=== PATIENT | male | born 1960 | race Caucasian/White ===

== ENCOUNTER 2018-08-11 14:52 | Emergency (ER) | payer BC ==
[~2018-08-11] VITALS: Ht 182.9 cm; Wt 81.2 kg
--- NOTE | 2018-08-11 15:05 | NUR ---
PT BIB SELF C/O GLF, +KO,+DIZZY,HEMATOMA ON THE R EYE, LAC R EYE, R CHIN, PT IS AAOX4, NOT IN RESPIRATORY DISTRESS, KEPT RESTED AND COMFORTABLE.
--- NOTE | 2018-08-11 15:10 | NUR ---
SEEN AND EXAMINED BY DR. SERVIN.
[2018-08-11] MEDS ORDERED: TDAP [DIPH/PERTUSSIS/TET] 0.5 ML VIAL IM ONE ×2 (15:24→15:30)
[2018-08-11] MEDS ORDERED: CEPHALEXIN MONOHYDRATE 500 MG CAPSULE PO ONE ×2 (15:24→15:30)
--- NOTE | 2018-08-11 15:30 | NUR ---
PT IS WHEELD TO CT SCAN VIA [facility].
--- NOTE | 2018-08-11 16:01 | NUR ---
CALLED DR ANNE, LEFT A VOICEMAIL.
[2018-08-11 16:04] LABS: BASOPHILS # (AUTO) 0.1 /CMM (0.0-0.2); BASOPHILS % (AUTO) 0.7 % (0.0-2.0); EOSINOPHILS % (AUTO) 0.5 % (0.0-6.0); HEMATOCRIT 40 % (39-51); HEMOGLOBIN 13.9 g/dL (13.5-17.5); LYMPHOCYTES # (AUTO) 1.1 /CMM (0.8-4.8); LYMPHOCYTES % (AUTO) 16.1 % (20.0-44.0); MEAN CORPUSCULAR HGB CONC 35 g/dl (31.0-36.0); MEAN CORPUSCULAR VOLUME 104 fL (80-96); MONOCYTES # (AUTO) 0.5 /CMM (0.1-1.30); MONOCYTES % (AUTO) 7.5 % (2.0-12.0); NEUTROPHILS % (AUTO) 75.2 % (43.0-81.0); PLATELET COUNT (AUTO) 167 /CMM (150-450); RED BLOOD CELL COUNT(AUTO) 3.84 MIL/uL (4.5-6.0); WHITE BLOOD COUNT (AUTO) 6.7 K/uL (4.3-11.0)
[2018-08-11 16:10] LABS: CALCIUM, SERUM 9.2 mg/dL (8.5-10.1); CREATININE 1.2 mg/dL (0.6-1.3); POTASSIUM 4.2 mmol/L (3.5-5.1)
--- NOTE | 2018-08-11 17:32 | NUR ---
IV removed. Catheter intact and site benign. Pressure and 4x4 applied to site. No bleeding noted. Patient discharged to home in stable condition. Written and verbal after care instructions given. Patient verbalizes understanding of instruction.
[2018-08-11 17:33] VITALS: BP 128/71
[2018-09-22] MEDS ORDERED: FOLI1TAB16 PO (13:04)
[2018-09-22] MEDS ORDERED: THIA100T88 PO (13:04)
== END 2018-08-11 17:35 | disposition home or self-care (01) ==
LOC: ER 14:55
DX: S06.6X0A Traumatic subarachnoid hemorrhage without loss of consciousness, initial encounter (principal); S01.111A Laceration without foreign body of right eyelid and periocular area, initial encounter; S01.411A Laceration without foreign body of right cheek and temporomandibular area, initial encounter; H11.31 Conjunctival hemorrhage, right eye; F17.200 Nicotine dependence, unspecified, uncomplicated; I10 Essential (primary) hypertension; E78.5 Hyperlipidemia, unspecified; F10.10 Alcohol abuse, uncomplicated; E78.00 Pure hypercholesterolemia, unspecified; R94.31 Abnormal electrocardiogram [ECG] [EKG]; Y90.9 Presence of alcohol in blood, level not specified; W18.39XA Other fall on same level, initial encounter; Y93.89 Activity, other specified; Y92.89 Other specified places as the place of occurrence of the external cause; Y99.8 Other external cause status
CPT/HCPCS: 36415; 70450-TC; 70486-TC; 80048-TC; 85025-TC; 85730-TC; 90715; A6403

== ENCOUNTER 2018-09-20 11:52 | Inpatient (IN) | payer SELFPAY ==
[2018-09-20] VITALS (12 sets, daily range): BP systolic 135–157; BP diastolic 56–114
[~2018-09-20] VITALS: Ht 182.9 cm; Wt 79.8 kg
--- NOTE | 2018-09-20 11:52 | NUR ---
BIB FROM HOME FOR ETOH WITHDRAWAL; PT AAOX4, PT ON MONITOR, VSS, NAD NOTED, PENDING MD CULLEN
[2018-09-20] MEDS ORDERED: ONDANSETRON HCL/PF 4 MG/2 ML VIAL ONE (12:27)
[2018-09-20] MEDS ORDERED: LORAZEPAM INJ 2 MG/ML VIAL ONE ×3 (12:27→16:07)
[2018-09-20] MEDS ORDERED: LORAZEPAM INJ 2 MG/ML VIAL IVP ONE (12:30)
[2018-09-20] MEDS ORDERED: IV NS 0.9% 1,000 ML BAG IV ONE ×2 (12:30→15:30)
[2018-09-20] MEDS ORDERED: ONDANSETRON HCL/PF 4 MG/2 ML VIAL IVP ONE (12:30)
[2018-09-20 12:33] LABS: BASOPHILS % (AUTO) 0.4 % (0.0-2.0); EOSINOPHILS % (AUTO) 0.2 % (0.0-6.0); HEMATOCRIT 40 % (39-51); HEMOGLOBIN 13.8 g/dL (13.5-17.5); LYMPHOCYTES # (AUTO) 0.8 /CMM (0.8-4.8); LYMPHOCYTES % (AUTO) 9.2 % (20.0-44.0); MEAN CORPUSCULAR HGB CONC 35 g/dl (31.0-36.0); MEAN CORPUSCULAR VOLUME 104 fL (80-96); MONOCYTES # (AUTO) 0.9 /CMM (0.1-1.30); MONOCYTES % (AUTO) 10.6 % (2.0-12.0); NEUTROPHILS # (AUTO) 6.8 /CMM (1.8-8.9); NEUTROPHILS % (AUTO) 79.6 % (43.0-81.0); PLATELET COUNT (AUTO) 114 /CMM (150-450); RED BLOOD CELL COUNT(AUTO) 3.83 MIL/uL (4.5-6.0); WHITE BLOOD COUNT (AUTO) 8.6 K/uL (4.3-11.0)
[2018-09-20 12:44] LABS: LIPASE 233 U/L (73-393)
[2018-09-20 12:47] LABS: CALCIUM, SERUM 10.3 mg/dL (8.5-10.1); CARBON DIOXIDE 23 mmol/L (21-32); CHLORIDE 99 mmol/L (98-107); CREATININE 1.6 mg/dL (0.6-1.3); GLUCOSE 113 mg/dL (74-106); POTASSIUM 4.1 mmol/L (3.5-5.1); SODIUM SERUM 137 mmol/L (136-145); UREA NITROGEN, BLOOD 28 mg/dL (7-18)
[2018-09-20 12:50] LABS: ALANINE AMINOTRANSFERASE 111 U/L (12-78); ALBUMIN 4.2 g/dL (3.4-5.0); ALCOHOL, BLOOD < 3 mg/dL (0-0); ALKALINE PHOSPHATASE 110 U/L (46-116); ASPARTATE AMINOTRANSFERASE 98 U/L (15-37); BILIRUBIN,DIRECT 0.6 mg/dL (0.0-0.2); BILIRUBIN,TOTAL 2.4 mg/dL (0.2-1.0); TOTAL PROTEIN, SERUM 7.8 g/dL (6.4-8.2)
[2018-09-20] MEDS ORDERED: LORAZEPAM INJ 2 MG/ML VIAL IV ONE ×2 (13:30→15:30)
[2018-09-20] MEDS ORDERED: LORAZEPAM 1 MG TABLET ONE (13:35)
--- NOTE | 2018-09-20 13:57 | NUR ---
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
[2018-09-20] MEDS ORDERED: THIAMINE HCL 100 MG TABLET PO ONE (15:00)
--- NOTE | 2018-09-20 15:20 | NUR ---
REPORTED TO CHARLEE DROSS PULLER, PT ACTING BIZARRE. PER CHARLEE, SHE WILL CHECK PT.
[2018-09-20] MEDS ORDERED: Thiamine 500 MG in IV D5W 50 ML IV SCH (15:30)
[2018-09-20] MEDS ORDERED: Thiamine 100 MG in IV D5W 50 ML IV SCH (15:30)
[2018-09-20] MEDS ORDERED: VENL75CA62 PO (16:26)
[2018-09-20] MEDS ORDERED: LISI40TA4 PO (16:26)
[2018-09-20] MEDS ORDERED: THIA100T70 PO (16:26)
[2018-09-20] MEDS ORDERED: LORA-259 PO (16:26)
[2018-09-20] MEDS ORDERED: ATOR10TA PO (16:26)
[2018-09-20] MEDS ORDERED: MULT1CAP34 PO (16:26)
--- NOTE | 2018-09-20 16:48 | NUR ---
ICU 254.
[2018-09-20] MEDS ORDERED: Z GUARD REMEDY 2 OZ OINT TP PRN (17:00)
[2018-09-20] MEDS ORDERED: ZOLPIDEM TARTRATE 5 MG TABLET PO PRN (17:00)
[2018-09-20] MEDS ORDERED: HYDROCODONE/APAP 5/325MG 1 EACH TABLET PO PRN (17:00)
[2018-09-20] MEDS ORDERED: MAG HYDROX/AL HYDROX/SIMETH 30 ML UDC PO PRN (17:00)
[2018-09-20] MEDS ORDERED: ALBUTEROL FS 2.5 MG/3 ML VIAL.NEB NEB PRN (17:00)
[2018-09-20] MEDS ORDERED: MAGNESIUM HYDROXIDE 30 ML UDC PO PRN (17:00)
[2018-09-20] MEDS ORDERED: LORAZEPAM INJ 2 MG/ML VIAL IV PRN (17:00)
[2018-09-20] MEDS ORDERED: ACETAMINOPHEN 325 MG TABLET PO PRN (17:00)
[2018-09-20] MEDS ORDERED: ONDANSETRON HCL/PF 4 MG/2 ML VIAL IVP PRN (17:00)
--- NOTE | 2018-09-20 17:04 | NUR ---
RECEIVED REPORT FROM FORGE HELPER FOR CONTINUITY OF CARE. AWAITING PATIENT ARRIVAL.
--- NOTE | 2018-09-20 17:04 | NUR ---
REPORT GIVEN TO WILBUR BRAN FOR JOSEFINA; PT WILL BE TRANSFERRED TO ICU VIA ACLS PROTOCOL
--- NOTE | 2018-09-20 17:16 | NUR ---
RECEIVED PT IN NO ACUTE DISTRESS IN BED. PT IS A/O X 1 AND HAS SLURRED SPEECH. PT IS ON RA AND TOLERATING WELL WITH O2 SAT @ 97%. PT NOT C/O ANY SOB, DIFFICULTY BREATHING OR PAIN AT THIS TIME. PT CURRENTLY SPEAKING TO HIM SELF AND IS HAVING HALLUCINATIONS. PT PLACED ON TELE WITH ST ON THE MONITOR. PT HAS LFA 20G THAT IS CLEAN DRY INTACT AND PATENT WITH SALINE FLUSH. ALL NEEDS MET, ALL ORDERS CARRIED OUT. WILL CONTINUE TO MONITOR PT.
[2018-09-20] MEDS: LORAZEPAM INJ 2 MG/ML VIAL IV SCH ×2 (18:25→23:05)
[2018-09-20] MEDS: IV NS 0.9% 1,000 ML IV PRN (18:27)
[2018-09-20] MEDS: NICOTINE PATCH (21MG) 21 MG PATCH.TD24 TD SCH (23:07)
[2018-09-21] VITALS (21 sets, daily range): BP systolic 120–189; BP diastolic 45–120
[2018-09-21] MEDS: LORAZEPAM INJ 2 MG/ML VIAL IV SCH ×4 (04:38→22:40)
[2018-09-21] MEDS ORDERED: Thiamine 100 MG/ML VIAL ONE (05:13)
[2018-09-21 05:17] LABS: BASOPHILS % (AUTO) 0.9 % (0.0-2.0); EOSINOPHILS % (AUTO) 1.8 % (0.0-6.0); HEMATOCRIT 31 % (39-51); HEMOGLOBIN 10.8 g/dL (13.5-17.5); MEAN CORPUSCULAR HGB CONC 34 g/dl (31.0-36.0); MEAN CORPUSCULAR VOLUME 105 fL (80-96); MONOCYTES # (AUTO) 0.8 /CMM (0.1-1.30); MONOCYTES % (AUTO) 14.6 % (2.0-12.0); NEUTROPHILS # (AUTO) 3.5 /CMM (1.8-8.9); NEUTROPHILS % (AUTO) 63.7 % (43.0-81.0); PLATELET COUNT (AUTO) 84 /CMM (150-450); RED BLOOD CELL COUNT(AUTO) 2.97 MIL/uL (4.5-6.0); WHITE BLOOD COUNT (AUTO) 5.5 K/uL (4.3-11.0)
[2018-09-21 05:44] LABS: CALCIUM, SERUM 8.6 mg/dL (8.5-10.1); MAGNESIUM 1.5 mg/dL (1.8-2.4); PHOSPHORUS 3.9 mg/dL (2.5-4.9); POTASSIUM 3.6 mmol/L (3.5-5.1)
[2018-09-21 05:54] LABS: EOSINOPHILS % (MANUAL) 1 % (0-4); LYMPHOCYTES % (MANUAL) 18 % (16-48); MONOCYTES % (MANUAL) 12 % (0-11.0); NEUTROPHILS % (MANUAL) 69 (42-76)
[2018-09-21] MEDS ORDERED: Thiamine 100 MG in IV D5W 50 ML IV SCH (06:00)
[2018-09-21] MEDS: IV NS 0.9% 1,000 ML IV PRN ×2 (07:35→22:40)
[2018-09-21] MEDS: FOLIC ACID 1 MG TABLET PO SCH (08:18)
[2018-09-21] MEDS: NICOTINE PATCH (21MG) 21 MG PATCH.TD24 TD SCH (08:18)
[2018-09-21] MEDS: hydrALAZINE HCL IV 20 MG VIAL IV PRN ×2 (08:18→18:34)
--- NOTE | 2018-09-21 08:18 | NUR ---
INITIAL ASSET MANAGEMENT LEAD NOTE RCVD PT AWAKE AND ALERT TO SELF, SITUATION, ORIENTED TO PLACE, TIME, ON RA TOLERATING WELL, SR ON MONITOR. PT ABLE TO FOLLOW COMMANDS, BRUISING FOUND THROUGHOUT BODY, LEFT FA IV SITE C/D/I/PATENT, NO S/O INFILTRATION/PHLEBITIS OBSERVED IVF INFUSING ORDERED. PT TOLERATING REGULAR DIET, BUE TREMORS OBSERVED WHILE FEEDING, WEAK GAIT UPON TRANSFERRING TO CHAIR. WILL CONTINUE TO MONITOR PT FOR SAFETY AND COMFORT. CALL LIGHT WITHIN REACH.
[2018-09-21] MEDS ORDERED: LISINOPRIL (20MG) 20 MG TABLET PO SCH (11:30)
--- NOTE | 2018-09-21 12:00 | NUR ---
TD/CLINICAL APPLICATIONS MANAGER TO [facility] PT TRANSFERRED TO [facility] VIA WHEELCHAIR ACCOMPANIED BY ICU NURSE STIVEN TO ROOM 115#1, PT NOTED WITH CONFUSION BUT ALERT TO HIMSELF. PT WAS ENDORSED TO CONTINUE CARE. PT IS COMFORTABLE AT THIS TIME, SAFETY MAINTAINED AND CL WITHIN REACHED. ON GOING MONITORING.
--- NOTE | 2018-09-21 12:01 | NUR ---
TRANSFER NOTE PT TRANSFERRED TO [facility] ROM 115-1 VIA WHEELCHAIR VITAL SIGNS STABLE, SHOWING NO SIGNS OF DISTRESS OBSERVED, PT AWAKE AND ALERT TO SELF, SITUATION. DR. CORDERO IN UNIT PRIOR TRANSFER INFORMED OF PT'S ELEVATED BP, RECOMMENDED TO START HIM BACK ON LISINOPRIL, PT INFORMED AND AWARE. ALL BELONGINGS TRANSFERRED WITH PT. REPORT GIVEN TO WILBUR FANG AT BEDSIDE. PT TOLERATED TRANSFER WELL.
[2018-09-21] MEDS: Magnesium 1GM/D5W 100ML PREMIX 100 ML IV SCH ×2 (12:45→14:15)
--- NOTE | 2018-09-21 13:26 | NUR ---
Social service consult requested by Dr. Cosme for alcohol use. Pt. is a 58 year old male who was admitted to [facility] ICU for alcohol withdrawal. LC met with pt. bedside. Pt. is alert and oriented x 4. tooling manager Deangelo was present bedside. Pt. appeared well groomed. Pt's hands were shaking as he is going through alcohol withdrawals.Pt. resides alone at [address] [place] [address] in [facility]. Pt. is going through a divorce and having custody issues. Pt. works for [employer]. Currently pt. states he has [employer] insurance. Pt. is an alcoholic and drinks one to one a half pints of vodka daily. Pt. has been drinking for the past nine months. Pt. was at a substance abuse program in [place] 6 years ago. Pt. stated sober for five years relapsed due to divorce and custody issues. Pt. is not interested in inpatient substance abuse treatment and prefers to attend an outpatient treatment program. LC gave pt. brochure to [facility] located at [address] [place] [address]. [place] [address]. . No other social service needs are requested at this time. SW is available, if needed.
--- NOTE | 2018-09-21 19:30 | NUR ---
TD/RN AM SHIFT END NOTES NO ACUTE CHANGE OF CONDITION NOTED SINCE PT WAS DOWNGRADED TO [facility] STATUS, PT IS STILL CONFUSED BUT COMPLIANT. ALL NEEDS MET. PT ENDORSED TO PM NURSE TO CONTINUE CARE. CL WITHIN REACHED AND SAFETY MAINTAINED.
--- NOTE | 2018-09-21 20:00 | NUR ---
[facility]/RN NOTES: RECEIVED PT. IN BED W/ HOB ELEVATED. ALERT TO SELF AND PLACE. ON TELE MONITOR W/ SR/ST . CONTINENT OF B/B. USES URINAL. HAS A LFA G 18 PATENT AND INTACT W/ NO S/S OF INFECTION OR INFILTRATION NOTED. W/ IVF RUNNING. WILL CONTINUE TO MONITOR. BEDS LOCKED AND IN LOW POSITION. WILL CONTINUE TO MONITOR.
[2018-09-22] VITALS: BP 134/90
[2018-09-22 04:00] VITALS: BP 150/98
[2018-09-22] MEDS: LORAZEPAM INJ 2 MG/ML VIAL IV SCH ×2 (04:59→11:12)
--- NOTE | 2018-09-22 07:12 | NUR ---
RO[facility]/RN NOTES: REPORT GIVEN TO NEXT SHIFT NURSE FOR JOSEFINA.
[2018-09-22 08:00] VITALS: BP 134/102
[2018-09-22 08:12] LABS: BASOPHILS # (AUTO) 0.1 /CMM (0.0-0.2); BASOPHILS % (AUTO) 0.9 % (0.0-2.0); EOSINOPHILS % (AUTO) 1.8 % (0.0-6.0); HEMATOCRIT 35 % (39-51); HEMOGLOBIN 12.2 g/dL (13.5-17.5); LYMPHOCYTES % (AUTO) 18.6 % (20.0-44.0); MEAN CORPUSCULAR HGB CONC 35 g/dl (31.0-36.0); MEAN CORPUSCULAR VOLUME 105 fL (80-96); MONOCYTES # (AUTO) 0.8 /CMM (0.1-1.30); MONOCYTES % (AUTO) 13.7 % (2.0-12.0); NEUTROPHILS # (AUTO) 3.7 /CMM (1.8-8.9); PLATELET COUNT (AUTO) 114 /CMM (150-450); RED BLOOD CELL COUNT(AUTO) 3.29 MIL/uL (4.5-6.0); WHITE BLOOD COUNT (AUTO) 5.6 K/uL (4.3-11.0)
[2018-09-22 08:19] LABS: CALCIUM, SERUM 8.6 mg/dL (8.5-10.1); CREATININE 0.8 mg/dL (0.6-1.3); MAGNESIUM 1.8 mg/dL (1.8-2.4); POTASSIUM 3.6 mmol/L (3.5-5.1)
[2018-09-22] MEDS: FOLIC ACID 1 MG TABLET PO SCH (08:37)
[2018-09-22] MEDS: NICOTINE PATCH (21MG) 21 MG PATCH.TD24 TD SCH (08:38)
[2018-09-22] MEDS ORDERED: LISINOPRIL (20MG) 20 MG TABLET PO SCH (09:00)
[2018-09-22] MEDS ORDERED: THIAMINE HCL 100 MG TABLET PO SCH (09:00)
[2018-09-22] MEDS ORDERED: VENLAFAXINE XR 75 MG CAP.SR.24H PO SCH (09:00)
[2018-09-22] MEDS ORDERED: ATORVASTATIN 10 MG TABLET PO SCH (09:00)
--- NOTE | 2018-09-22 12:15 | NUR ---
Pt's female friend spoke with SW regarding pts current state, pt's friend is requesting social works assistance in placing pt in an inpatient treatment facility. Sw explained social work role in [facility], swer provided pt's friend with resources for substance abuse and treatment centers. Pt's friend is requesting social work assist in completing Disability paperwork, social work informed pt's friend of social works role and MD form regarding disability forms. Pt's friend stated she already has disability paperwork and will bring in. Once social sciences lecturer reviewed notes and it became evident that social work and case management had both been in together to see pt on 09/21/18. Please see previous notes.
[2018-09-22] MEDS ORDERED: FOLI1TAB16 PO (13:04)
[2018-09-22] MEDS ORDERED: THIA100T88 PO (13:04)
[2018-09-22 16:00] VITALS: BP 141/89
--- NOTE | 2018-09-22 17:10 | NUR ---
RN CLOSING NOTE PATIENT DISCHARGED HOME. PAPERWORK COMPLETED AND SIGNED. IV SITE AND ID BAND REMOVED. PICTURES TAKEN AND PLACED IN CHART. PATIENT LEFT VIA PRIVATE CAR WITH GIRLFRIEND MADHU.
== END 2018-09-22 16:20 | disposition home or self-care (01) | DRG 896 ==
LOC: ER 11:56 → ICU 16:58 → TELE-TD 09-21 12:08 → MEDSG1 09-22 11:21
PROVIDERS: ADMIT Internal Medicine; ATTEND Nurse Practitioner Acute Care
DX: F10.231 Alcohol dependence with withdrawal delirium (principal); N17.0 Acute kidney failure with tubular necrosis; D69.6 Thrombocytopenia, unspecified; K70.10 Alcoholic hepatitis without ascites; F17.210 Nicotine dependence, cigarettes, uncomplicated; E78.5 Hyperlipidemia, unspecified; I10 Essential (primary) hypertension; T51.0X1A Toxic effect of ethanol, accidental (unintentional), initial encounter; Y90.0 Blood alcohol level of less than 20 mg/100 ml; Z91.19 Patient's noncompliance with other medical treatment and regimen
CPT/HCPCS: 36415; 70450-TC; 71045-TC; 80048-TC; 80061-TC; 80076-TC; 82962-TC; 83690-TC; 83735-TC; 84100-TC; 84425; 84484-TC; 85025-TC; 87081-TC; A4349; G0378; G0480; J0360; J2060; J2405; J3411; J3475; J7030; J7060; Q2036

== ENCOUNTER 2018-10-08 18:08 | Emergency (ER) | payer SELFPAY ==
[~2018-10-08] VITALS: Ht 185.4 cm; Wt 70.8 kg
[~2018-10-08 18:08] MED LIST: ATOR10TA PO; FOLI1TAB16 PO; LISI40TA4 PO; LORA-259 PO; MULT1CAP34 PO; THIA100T88 PO; VENL75CA62 PO
[2018-10-08 18:42] VITALS: BP 148/103
--- NOTE | 2018-10-08 19:00 | NUR ---
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 PT ETOH, EASILY AWAKEN WITH VERBAL STIMULI & WILL GO BACK TO SLEEP. RR EVEN & UNLABORED. NAD NOTED @ THIS TIME. AWAITING EVAL BY ALDAIR/PA. FAMILY MEMBER @ BS & WILL CONT O MONITOR.
--- NOTE | 2018-10-08 19:30 | NUR ---
LONNY PATEL AT BS FOR EVAL.
--- NOTE | 2018-10-08 20:00 | NUR ---
PT AMBULATED WELL W/O DIFFICULTY, PRUSHA AWARE.
--- NOTE | 2018-10-08 20:47 | NUR ---
PT LEFT W/O SIGNING JORGE NEGRON PA AWARE.
== END 2018-10-08 20:52 | disposition home or self-care (01) ==
LOC: ER 18:11
DX: S01.81XA Laceration without foreign body of other part of head, initial encounter (principal); F10.129 Alcohol abuse with intoxication, unspecified; E78.00 Pure hypercholesterolemia, unspecified; I10 Essential (primary) hypertension; Z79.899 Other long term (current) drug therapy; W19.XXXA Unspecified fall, initial encounter; Y93.89 Activity, other specified; Y92.89 Other specified places as the place of occurrence of the external cause; Y99.8 Other external cause status; Y90.9 Presence of alcohol in blood, level not specified

== ENCOUNTER 2020-08-21 16:55 | Inpatient (IN) | payer BC, OTHER ==
[~2020-08-21] VITALS: Ht 365.8 cm; Wt 79.4 kg
[~2020-08-21 16:55] MED LIST changes: +LISI40TA13 PO; -LISI40TA4 PO
--- NOTE | 2020-08-21 17:07 | NUR ---
[id number] home c/o "not feeling well" from alcohol widrawal, to ER bed 13, hooked to monitor, changedt o hosp gown, warm blanket provided, patient aao X 3, awaiting MD farr
--- NOTE | 2020-08-21 17:15 | NUR ---
Dr Nichole at bedside
[2020-08-21 17:39] LABS: BASOPHILS % (AUTO) 0.2 % (0.0-2.0); EOSINOPHILS % (AUTO) 0.1 % (0.0-6.0); HEMATOCRIT 39 % (39-51); HEMOGLOBIN 13.2 g/dL (13.5-17.5); LYMPHOCYTES # (AUTO) 0.6 /CMM (0.8-4.8); LYMPHOCYTES % (AUTO) 6.2 % (20.0-44.0); MEAN CORPUSCULAR HGB CONC 34 g/dl (31.0-36.0); MEAN CORPUSCULAR VOLUME 98 fL (80-96); MONOCYTES # (AUTO) 0.8 /CMM (0.1-1.30); MONOCYTES % (AUTO) 8.3 % (2.0-12.0); NEUTROPHILS # (AUTO) 7.8 /CMM (1.8-8.9); NEUTROPHILS % (AUTO) 85.2 % (43.0-81.0); PLATELET COUNT (AUTO) 58 /CMM (150-450); RED BLOOD CELL COUNT(AUTO) 3.97 MIL/uL (4.5-6.0); WHITE BLOOD COUNT (AUTO) 9.2 K/uL (4.3-11.0)
[2020-08-21 18:06] LABS: CALCIUM, SERUM 9.7 mg/dL (8.5-10.1); CARBON DIOXIDE 12 mmol/L (21-32); CHLORIDE 97 mmol/L (98-107); CREATININE 1.6 mg/dL (0.6-1.3); GLUCOSE 158 mg/dL (74-106); POTASSIUM 3.9 mmol/L (3.5-5.1); SODIUM SERUM 137 mmol/L (136-145); UREA NITROGEN, BLOOD 27 mg/dL (7-18)
[2020-08-21 18:12] LABS: ALANINE AMINOTRANSFERASE 92 U/L (12-78); ALCOHOL, BLOOD < 3 mg/dL (0-0); ALKALINE PHOSPHATASE 118 U/L (46-116); ASPARTATE AMINOTRANSFERASE 71 U/L (15-37); BILIRUBIN,DIRECT 0.5 mg/dL (0.0-0.2); BILIRUBIN,TOTAL 2.2 mg/dL (0.2-1.0); TOTAL PROTEIN, SERUM 7.9 g/dL (6.4-8.2)
[2020-08-21] MEDS ORDERED: LORAZEPAM INJ 2 MG/ML VIAL ONE (18:13)
[2020-08-21] MEDS ORDERED: CLONIDINE HCL 0.1 MG TABLET ONE (18:13)
[2020-08-21 18:15] LABS: ACETAMINOPHEN 0 ug/ml (10-30)
[2020-08-21 18:29] LABS: BAND % (MANUAL) 1 % (0.0-5.0); LYMPHOCYTES % (MANUAL) 8 % (16-48); MONOCYTES % (MANUAL) 5 % (0-11.0); NEUTROPHILS % (MANUAL) 86 (42-76)
[2020-08-21] MEDS ORDERED: LORAZEPAM INJ 2 MG/ML VIAL IV ONE (18:30)
[2020-08-21] MEDS ORDERED: CLONIDINE HCL 0.1 MG TABLET PO ONE (18:30)
[2020-08-21] MEDS ORDERED: IV NS 0.9% 1,000 ML IV ONE (19:00)
[2020-08-21] MEDS ORDERED: THIA100T70 PO (19:02)
[2020-08-21] MEDS ORDERED: ZONI100C31 PO (19:02)
[2020-08-21] MEDS ORDERED: ESCI10TA PO (19:02)
[2020-08-21] MEDS ORDERED: FOLI0.4T2 PO (19:02)
[2020-08-21] MEDS ORDERED: CYAN-51 PO (19:02)
[2020-08-21] MEDS ORDERED: TRAZ-257 PO (19:02)
[2020-08-21] MEDS ORDERED: LINA290C PO (19:02)
[2020-08-21] MEDS ORDERED: GABA-532 PO (19:03)
--- NOTE | 2020-08-21 19:18 | NUR ---
REPORT GIVEN TO REYNA BOWLES FOR JOSEFINA.
--- NOTE | 2020-08-21 19:28 | NUR ---
CALLED FOR COVID SWAB.
--- NOTE | 2020-08-21 19:28 | NUR ---
Kellen avery in [facility] - 08/21/20 at 1928 by ZACHARIAH CALLED FOR ABNER SULTANA
--- NOTE | 2020-08-21 19:38 | NUR ---
GIUSEPPEID SWABBED, SENT TO LAB.
--- NOTE | 2020-08-21 19:44 | NUR ---
PT AAOX4. AWARE OF BEING ADMITTED, VITALS STABLE.
--- NOTE | 2020-08-21 21:03 | NUR ---
REPORT GIVEN TO KAT BOWLES FOR JOSEFINA
--- NOTE | 2020-08-21 21:45 | NUR ---
PT TRANSFERED PER ACLS PROTOCOL
[2020-08-21 21:55] VITALS: BP 149/108
--- NOTE | 2020-08-21 22:00 | NUR ---
RN NOTES PT CAME TO UNIT VIA PATRICIORSALVADOR. PT ALERT AND ORIENTED X4. NO SOB NOTED OR REPORTED AT THIS TIME. NO PAIN NOTED OR REPORTED AT THIS TIME. PT ON ROOM AIR TOLERATING WELL HAS IV ACCESS ON THE RIGHT AC 23G PATENT AND INTACT NO SIGNS OF SWELLING OR PAIN AT SITE.ON SEIZURE PRECAUTIONS HOB ELEVATED. ORIENTED TO ROOM AND UNIT. ALL NURSING NEEDS MET AT THIS TIME. SAFETY MEASURES FOLLOWED. HOB ELEVATED BILATERAL SIDE RAILS UP. CALL LIGHT WITHIN REACH. WILL CONTINUE TO MONITOR.
[2020-08-22] MEDS ORDERED: ZOLPIDEM TARTRATE 5 MG TABLET PO PRN
[2020-08-22] MEDS ORDERED: Z GUARD REMEDY 2 OZ OINT TP PRN
[2020-08-22] MEDS ORDERED: ACETAMINOPHEN 325 MG TABLET PO PRN
[2020-08-22] MEDS ORDERED: MAG HYDROX/AL HYDROX/SIMETH 30 ML UDC PO PRN
[2020-08-22] MEDS ORDERED: ONDANSETRON HCL/PF 4 MG/2 ML VIAL IVP PRN
[2020-08-22] MEDS ORDERED: HYDROCODONE/APAP 5/325MG TABLET PO PRN
[2020-08-22] MEDS ORDERED: IV D5/0.45 NACL 1,000 ML IV PRN
[2020-08-22] MEDS ORDERED: MAGNESIUM HYDROXIDE 30 ML UDC PO PRN
[2020-08-22] MEDS ORDERED: hydrALAZINE HCL 25 MG TABLET PO PRN (00:30)
[2020-08-22 04:00] VITALS: BP 134/86
[2020-08-22 06:59] LABS: BASOPHILS % (AUTO) 0.6 % (0.0-2.0); EOSINOPHILS % (AUTO) 1.1 % (0.0-6.0); HEMATOCRIT 34 % (39-51); HEMOGLOBIN 11.8 g/dL (13.5-17.5); LYMPHOCYTES % (AUTO) 15.6 % (20.0-44.0); MEAN CORPUSCULAR HGB CONC 35 g/dl (31.0-36.0); MEAN CORPUSCULAR VOLUME 97 fL (80-96); MONOCYTES # (AUTO) 0.8 /CMM (0.1-1.30); MONOCYTES % (AUTO) 12.4 % (2.0-12.0); NEUTROPHILS # (AUTO) 4.6 /CMM (1.8-8.9); NEUTROPHILS % (AUTO) 70.3 % (43.0-81.0); RED BLOOD CELL COUNT(AUTO) 3.52 MIL/uL (4.5-6.0); WHITE BLOOD COUNT (AUTO) 6.6 K/uL (4.3-11.0)
[2020-08-22 07:10] LABS: CALCIUM, SERUM 8.8 mg/dL (8.5-10.1); CREATININE 0.9 mg/dL (0.6-1.3); MAGNESIUM 2.1 mg/dL (1.8-2.4); PHOSPHORUS 4.2 mg/dL (2.5-4.9); POTASSIUM 3.5 mmol/L (3.5-5.1)
--- NOTE | 2020-08-22 07:20 | NUR ---
RN NOTES BEDSIDE ENDORSEMENT DONE. PATIENT IN BED RESTING, AWAKE AND VERBALLY RESPONSIVE. ALERT AND ORIENTED X4, ABLE TO MAKE NEEDS KNOWN. BREATHING EVEN AND UNLABORED, TOLERATING ROOM AIR. IV ACCESS ON THE RIGHT AC INTACT AND PATENT, IVF OF D5 1/2 NS AT 75CC/HR INFUSING WELL. SEIZURE PRECAUTIONS OBSERVED. HOB ELEVATED. SAFETY MEASURES IN PLACE. WILL CONTINUE TO MONITOR.
[2020-08-22 07:25] LABS: THYROID STIMULATING HORMONE 1.205 uIU/mL (0.358-3.74)
--- NOTE | 2020-08-22 07:27 | NUR ---
RN NOTES PT CAME TO UNIT VIA PATRICIORSALVADOR. PT ALERT AND ORIENTED X4. NO SOB NOTED OR REPORTED AT THIS TIME. NO PAIN NOTED OR REPORTED AT THIS TIME. PT ON ROOM AIR TOLERATING WELL HAS IV ACCESS ON THE RIGHT AC 23G PATENT AND INTACT NO SIGNS OF SWELLING OR PAIN AT SITE.ON SEIZURE PRECAUTIONS HOB ELEVATED. ORIENTED TO ROOM AND UNIT. ALL NURSING NEEDS MET AT THIS TIME. SAFETY MEASURES FOLLOWED. HOB ELEVATED BILATERAL SIDE RAILS UP. CALL LIGHT WITHIN REACH. WILL ENDORSE CARE TO DAY SHIFT NURSE.
[2020-08-22] MEDS: PANTOPRAZOLE 40 MG TABLET.DR PO SCH (07:52)
[2020-08-22 07:57] LABS: PLATELET COUNT (AUTO) 46 /CMM (150-450)
[2020-08-22 08:00] VITALS: BP 141/65
[2020-08-22] MEDS: CHLORDIAZEPOXIDE HCL 25 MG CAPSULE PO SCH ×3 (08:16→17:07)
[2020-08-22 11:01] LABS: EOSINOPHILS % (MANUAL) 3 % (0-4); LYMPHOCYTES % (MANUAL) 17 % (16-48); MONOCYTES % (MANUAL) 8 % (0-11.0); NEUTROPHILS % (MANUAL) 72 (42-76)
[2020-08-22] MEDS: LORAZEPAM INJ 2 MG/ML VIAL IV PRN ×2 (11:08→20:55)
[2020-08-22] MEDS: THIAMINE HCL 100 MG TABLET PO SCH (12:37)
[2020-08-22] MEDS: FOLIC ACID 1 MG TABLET PO SCH (12:37)
--- NOTE | 2020-08-22 14:25 | NUR ---
SS Consult: SS Consult requested for alcohol withdrawal. The pt. is a 60-year old male. SW met pt. at bedside. The pt. appears clean, with tremors due to detox. The pt. is alert & oriented x 4 and makes appropriate eye contact. SW completed alcohol intervention. Patient stated that he goes on drinking binges. Pt. denies other drug use. Per pt. his drink of choice is beer & Vodka. Per EMR, pt. drinks about 1.5 pint of Vodka/ daily. Patient states that he is in the [employer] industry and not working as there isnt much work at the moment due to pandemic. Pt. stated he lives at home [[address] [facility] [address] [facility] [address]] with his girlfriend, Maureen Packer [phone]. SW offered to refer patient to alcohol rehab programs. Patient refused stating, I dont think I am ready for that". SW provided pt. with a list of sober livings, inpatient rehab & detox programs. SW encouraged pt. to enroll in programs to improve hisaddiction to alcohol. Patient expressed understanding. Pt. remained calm & cooperative throughout interview. Patient denies SI/HI & denies hallucination. SW provided pt. with the following resources: [facility] Substance Abuse Self-Helpline ([facility]) ; [facility]LP [address] [facility]. [place] 9[address] ; [facility] [address] [facility] [address] ; [facility] Rehabilitation Program [address] [facility] [address] [facility] [address] ; [facility] [address] [facility] [address] ; [facility] [address] [facility] [address] ; [facility] [address] [facility] [address] ; [facility] Substance Abuse Helpline([facility])-[facility] ; [facility] ; [facility] [place]; YolyAlphaStripe [place]; [facility]Help [place]; I-ADARP [facility] Joaquín Wells; [facility] Cornelio; [facility] [place]; Alcoholics Anonymous -SFV; Fabian ;
[2020-08-22 16:00] VITALS: BP 165/111
--- NOTE | 2020-08-22 19:25 | NUR ---
RN NOTES PATIENT IS IN BED, AWAKE AND VERBALLY RESPONSIVE. A/O X3-4, ABLE TO MAKE NEEDS KNOWN. BREATHING EVEN AND UNLABORED, TOLERATING ROOM AIR. IV LINE ON RAC #18 INTACT AND PATENT; PATIENT DOES NOT WANT TO BE CONNECTED TO IVF AT THIS TIME. SPOKE W/ MADHU, PATIENT'S GIRLFRIEND, AND WAS INFORMED ABOUT PATIENT SIGNING SOME PAPERS. BROUGHT TO PATIENT AND SIGNED AND RETURNED TO MADHU. INFORMED PATIENT ABOUT CURRENT PLAN, VERBALIZED UNDERSTANDING BUT NEEDS MULTIPLE REINFORCEMENT FOR UNDERSTANDING. SAFETY PRECS MAINTAINED. ENDORSED TO FRESH FOODS CLERK RN FOR JOSEFINA.
--- NOTE | 2020-08-22 19:35 | NUR ---
MSRN SITTING ON SIDE OF HIS BED. STATED WANTED TO LEAVE AMA. EXPLAINED RISK OF LEAVING, UNSTABLE FOR NOW. WILL SPEAK TO GF VIA PHONE. TO CONTINUE.
[2020-08-22 20:00] VITALS: BP 152/89
--- NOTE | 2020-08-22 20:35 | NUR ---
MSRN SEEN CRAWLING ON THE FLOOR, IV SITE BLEEDING, DISORIENTED. WANTS TO SMOKE. PATIENT DECIDED TO CRAWL BACK TO BED, [place] NEED TO RESTART IV. DIANE BACK TO BED. HFR. BECOMING MORE AGITATED.
[2020-08-22 20:37] VITALS: BP 152/69
--- NOTE | 2020-08-22 21:11 | NUR ---
MSRN AGREED TO STAY, HL RESTARTED 22 GAUGE ON RIGHT FOREARM WITH GOOD BLOOD RETURN. IVF CONTINUED ORDERED. SHAKY, DISORIENTED, ATIVAN 1MG IVP ADMINISTERED. KEPT COMFORTABLE. CLOSELY WATCHED. SAFETY PRECAUTIONS EMPHASIZED, BECOMING NONCOMPLIANT. NEEDS CONSTANT SUPERVISION/OBSERVATION.
--- NOTE | 2020-08-23 04:45 | NUR ---
MSRN PULLED OUT IV. WANTED TO GO OUT FOR SMOKE. ABLE TO WALK FOR NOW, WITH UNSTEADY GAIT. HFR.
--- NOTE | 2020-08-23 05:00 | NUR ---
MSRN RESTARTED 18 GAUGE ON LEFT FA BY RN. IVF CONTINUED. ATIVAN 1MG IVP ADMINISTERED. ASSISTED BACK TO BED.
[2020-08-23] MEDS: LORAZEPAM INJ 2 MG/ML VIAL IV PRN (05:01)
--- NOTE | 2020-08-23 05:25 | NUR ---
MSRN IV OUT AGAIN, OFF FOR NOW.
--- NOTE | 2020-08-23 07:05 | NUR ---
MS RN OPENING NOTES PATIENT SITTING IN A CHAIR. A/O X3. NO SOB NOTED. NO S/S OF RESPIRATORY DISTRESS. BREATHING IS EVEN AND UNLABORED. NO IV ACCESS AT THIS TIME. SAFETY MEASURES MAINTAINED. CALL LIGHT WITHIN REACH. WILL CONTINUE TO MONITOR THROUGHOUT THE SHIFT.
[2020-08-23 07:28] LABS: BASOPHILS % (AUTO) 0.3 % (0.0-2.0); EOSINOPHILS % (AUTO) 0.6 % (0.0-6.0); HEMATOCRIT 38 % (39-51); HEMOGLOBIN 12.9 g/dL (13.5-17.5); LYMPHOCYTES # (AUTO) 1.1 /CMM (0.8-4.8); LYMPHOCYTES % (AUTO) 11.4 % (20.0-44.0); MEAN CORPUSCULAR HGB CONC 34 g/dl (31.0-36.0); MEAN CORPUSCULAR VOLUME 98 fL (80-96); MONOCYTES % (AUTO) 10.7 % (2.0-12.0); NEUTROPHILS # (AUTO) 7.2 /CMM (1.8-8.9); PLATELET COUNT (AUTO) 71 /CMM (150-450); RED BLOOD CELL COUNT(AUTO) 3.89 MIL/uL (4.5-6.0); WHITE BLOOD COUNT (AUTO) 9.3 K/uL (4.3-11.0)
[2020-08-23 07:45] LABS: CALCIUM, SERUM 9.3 mg/dL (8.5-10.1); CREATININE 1.1 mg/dL (0.6-1.3); MAGNESIUM 1.9 mg/dL (1.8-2.4); PHOSPHORUS 3.9 mg/dL (2.5-4.9); POTASSIUM 3.2 mmol/L (3.5-5.1)
[2020-08-23 08:00] VITALS: BP 157/104
[2020-08-23] MEDS: THIAMINE HCL 100 MG TABLET PO SCH (08:34)
[2020-08-23] MEDS: CHLORDIAZEPOXIDE HCL 25 MG CAPSULE PO SCH (08:35)
[2020-08-23] MEDS: FOLIC ACID 1 MG TABLET PO SCH (08:35)
[2020-08-23] MEDS: PANTOPRAZOLE 40 MG TABLET.DR PO SCH (08:35)
[2020-08-23] MEDS ORDERED: ESCITALOPRAM OXALATE (10 MG) 10 MG TABLET PO SCH (09:30)
[2020-08-23] MEDS ORDERED: ZONISAMIDE 100 MG CAPSULE PO SCH (09:30)
[2020-08-23] MEDS ORDERED: POTASSIUM CHLORIDE 20 MEQ TAB.PRT.SR PO SCH (11:00)
[2020-08-23] MEDS ORDERED: GABAPENTIN 300 MG CAPSULE PO SCH (11:00)
--- NOTE | 2020-08-23 12:00 | NUR ---
MS RN NOTES PATIENT WENT AGAINST MEDICAL ADVICE. MD IS MADE AWARE. PROVIDER EXPLAINED THE RISK AND EFFECTS OF GOING AMA BUT PATIENT STILL INSISTED THAT HE'S LEAVING. SPOKE WITH HIS GF, MADHU, AND EXPLAINED HIS CONDITION, SHE SAID PT IS REALLY HARD-HEADED AND CAN'T DO ANYTHING ABOUT IT. BOOKED A CAB FOR THE PT AND GF SAID SHE WILL JUST PAY FOR IT WHEN PT GETS HOME. BELONGINGS WERE GIVEN TO THE PT.
[2020-08-23 12:28] LABS: EOSINOPHILS % (MANUAL) 2 % (0-4); LYMPHOCYTES % (MANUAL) 14 % (16-48); MONOCYTES % (MANUAL) 10 % (0-11.0); NEUTROPHILS % (MANUAL) 74 (42-76)
[2020-08-23] MEDS ORDERED: CHLORDIAZEPOXIDE HCL 25 MG CAPSULE PO ONE (13:00)
[2020-08-23] MEDS ORDERED: ATORVASTATIN 10 MG TABLET PO SCH (18:00)
[2020-08-23] MEDS ORDERED: TRAZODONE 50 MG TABLET PO SCH (22:00)
[2020-08-24] MEDS ORDERED: CYANOCOBALAMIN 500 MCG TABLET PO SCH (09:00)
[2020-08-24] MEDS ORDERED: Medication Not On Formulary EA (Linaclotide (Linzess) 290 MCG) PO SCH (09:00)
[2020-08-24] MEDS ORDERED: MULTIVITAMINS,THERAGRAN 1 UDTAB TABLET PO SCH (09:00)
[2020-08-24] MEDS ORDERED: LISINOPRIL (20MG) 20 MG TABLET PO SCH (09:00)
== END 2020-08-23 11:45 | disposition left against medical advice (07) | DRG 894 ==
LOC: ER 16:55 → TELE 20:45 → MED 08-22 11:29
PROVIDERS: ADMIT Student in an Organized Health Care Education/Training Program; ATTEND Student in an Organized Health Care Education/Training Program
DX: F10.239 Alcohol dependence with withdrawal, unspecified (principal); N17.0 Acute kidney failure with tubular necrosis; Y90.0 Blood alcohol level of less than 20 mg/100 ml; E78.00 Pure hypercholesterolemia, unspecified; D69.6 Thrombocytopenia, unspecified; E78.5 Hyperlipidemia, unspecified; I10 Essential (primary) hypertension; F32.9 Major depressive disorder, single episode, unspecified; Z79.899 Other long term (current) drug therapy; D64.9 Anemia, unspecified; N13.9 Obstructive and reflux uropathy, unspecified; E87.6 Hypokalemia; F17.200 Nicotine dependence, unspecified, uncomplicated
CPT/HCPCS: 36415; 80048-TC; 80061-TC; 80076-TC; 83735-TC; 84100-TC; 84443-TC; 85025-TC; 87081-TC; C9803; G0378; G0480; J2060; J3490; J7030

== ENCOUNTER 2020-09-11 22:05 | Emergency (ER) | payer BC, MEDICAID ==
[~2020-09-11] VITALS: Ht 182.9 cm; Wt 77.1 kg
[~2020-09-11 22:05] MED LIST changes: +CYAN-51 PO; +ESCI10TA PO; +FOLI0.4T6 PO; -FOLI1TAB16 PO; +GABA-532 PO; +LINA290C PO; +THIA100T70 PO; -THIA100T88 PO; +TRAZ-257 PO; -VENL75CA62 PO; +ZONI100C31 PO
--- NOTE | 2020-09-11 22:39 | NUR ---
PT AAOX4. BIBRA FROM HOME C/O ETOH. UPON ASSESSMENT PT DENIED ANY DISCOMFORT. ALSO NOTED L PERIORBITAL HEMATOMA. NO ACUTE DISTRESS NOTED, VSS. PLACED ON MONITOR AND PULSE OX. AWAITING MD FOR EVAL AND ORDERS.
--- NOTE | 2020-09-12 01:06 | NUR ---
PT THREATENED TO "BEAT THE SHIT OUT OF ME" UNPROVOKED. ALSO MADE PHSYCIAL THREATS TO OUR SITTER AND SECURITY WELL.
--- NOTE | 2020-09-12 04:09 | NUR ---
PATIENT IS AMBULATORY WITH A STEADY GAIT. AAOX4.
--- NOTE | 2020-09-12 04:31 | NUR ---
Patient discharged to home in stable condition. Written and verbal after care instructions given. Patient verbalizes understanding of instruction. Pt ambulated out of ED. VSS.
[2020-09-12 04:37] VITALS: BP 134/76
== END 2020-09-12 04:38 | disposition home or self-care (01) ==
LOC: ER 22:07
DX: F10.129 Alcohol abuse with intoxication, unspecified (principal); R22.0 Localized swelling, mass and lump, head; I10 Essential (primary) hypertension; E78.00 Pure hypercholesterolemia, unspecified; Z79.899 Other long term (current) drug therapy; Y90.9 Presence of alcohol in blood, level not specified
CPT/HCPCS: 70450-TC

== ENCOUNTER 2020-12-28 13:12 | Emergency (ER) | payer BC, OTHER ==
[~2020-12-28] VITALS: Ht 185.4 cm; Wt 83.9 kg
[2020-12-28] MEDS ORDERED: IV NS 0.9% 1,000 ML BAG IV ONE ×2 (13:30→14:30)
[2020-12-28 13:46] LABS: BASOPHILS # (AUTO) 0.1 K/uL (0.0-0.2); EOSINOPHILS % (AUTO) 0.3 % (0.0-6.0); HEMATOCRIT 29 % (39-51); HEMOGLOBIN 10.2 g/dL (13.5-17.5); LYMPHOCYTES # (AUTO) 1.1 K/uL (0.8-4.8); LYMPHOCYTES % (AUTO) 18.5 % (20.0-44.0); MEAN CORPUSCULAR HGB CONC 35 g/dl (31.0-36.0); MEAN CORPUSCULAR VOLUME 104 fL (80-96); MONOCYTES # (AUTO) 0.5 K/uL (0.1-1.30); MONOCYTES % (AUTO) 9.2 % (2.0-12.0); NEUTROPHILS # (AUTO) 4.1 K/uL (1.8-8.9); PLATELET COUNT (AUTO) 71 K/uL (150-450); RED BLOOD CELL COUNT(AUTO) 2.79 MIL/uL (4.5-6.0); WHITE BLOOD COUNT (AUTO) 5.8 K/uL (4.3-11.0)
--- NOTE | 2020-12-28 13:47 | NUR ---
VEDAIENZulma FROM HOME TO ER BED 12. ALERT, AWAKE BUT INTOXICATED. ADMITS TO DRINKING ALCOHOL, LAST ALCOHOL DRINK WAS THIS MORNING. BROUGHT IN FOR SHAKING GESTURE WHICH PT VERBALIZES THAT HE WAS HAVING A SEIZURE. PT WAS FULL RECOLLECTION OF THE INCIDENT AND WAS DEMONSTRATING THE SHAKING. NO NOTED ORAL TRAUMA. PLACED ON SEIZURE PRECAUTION. MD WAS AT THE BEDSIDE FOR EVAL. ORDERS RECEIVED, NOTED AND CARRIED OUT.
[2020-12-28 13:53] LABS: CALCIUM, SERUM 8.4 mg/dL (8.5-10.1); CREATININE 0.9 mg/dL (0.6-1.3); POTASSIUM 3.3 mmol/L (3.5-5.1)
[2020-12-28 14:00] LABS: ALBUMIN 3.6 g/dL (3.4-5.0); BILIRUBIN,DIRECT 0.4 mg/dL (0.0-0.2); BILIRUBIN,TOTAL 1.4 mg/dL (0.2-1.0); TOTAL PROTEIN, SERUM 6.8 g/dL (6.4-8.2)
--- NOTE | 2020-12-28 15:20 | NUR ---
SS Consult: SS Consult requested for ETOH. The pt. is a 60-year-old male. LC met with pt. bedside. LC explored pt.s drinking habits. Pt. states he has been using alcohol since the age of 20. Pt. stated his father was an alcoholic. Pt. has fair insight stating that alcohol is a problem for him. Pt. states he drinks 1 pint of Vodka daily. Pt.s girlfriend at bedside, Maureen Packer [phone]. Pt.stated that pt. drinks 2 pints of Vodka a day. Pt. stated he was last sober for 10 months at an inpatient rehab facility. Pt. stated he came to seek medical attention because he began to shake today due to alcohol abuse. Pt. stated he has not eaten in about 1 week. LC offered pt. referral to rehab facilities or outpatient Tx. and pt. refused stating, I am interested in Treatment but I will follow up on my own time. Maureen stated the pt. told her today that he does not want to quit his drinking habits. LC provided pt. with Addiction resources & pt. accepted them. Pt. states he lives with girlfriend, Maureen Packer [phone] [[address] [place] [id number]; [phone]] and will return there when ready for d/c. The pt. denies SI/HI and denies hallucinations. ADDICTION RESOURCES For Drugs and Alcohol [facility] Substance Abuse Helpline([facility])-[facility] Outpatient treatment, residential treatment, recovery support for youth and adults [facility] www.actionfamilycounseling.[facility] Teen programs for drug/alcohol education and support [facility] [place]. Program for adults, sliding scale provides support and education Yoly IMAGINATE - Techn[employer]ating Reality www.Sangamo BioSciencesation.org [place]; Outpatient/residential treatment programs; transition to sober living C[facility]Help www.cri-help.org [place]; Outpatient and residential treatment programs; transition to sober living I-ADARP Inter [place] [facility] Joaquín Wells; Outpatient education and supportive programs for teens and adults [facility] www.oasiswomensrecovery.org [place]; Residential treatment and work program for females only [facility] www.[facility].org [place]: Outpatient/residential treatment program for teens and young adults [facility] [place] [facility].org [place] Detox, inpatient, outpatient for adults and youth [facility], [facility]. [place]; Outpatient programs and referrals to community residential programs. Alcoholics Anonymous -SFV information and meeting and schedules www.aa-intergroup.org Dt-Cqno-Zvpequt https://al-anon.org/ [place] support groups for family of alcoholics. Marijuana Anonymous www.Contractor Copilot6.org -sfv listing of meetings Narcotics Anonymous www.na.org SOBER LIVING RESOURCES The [facility] Living Network www.soberhousing.net A non-profit agency that provides resources to recovery and sober living homes throughout [place], [facility] Sober Living Homes: A Work in ProgressYusuf [facility], [place] [facility] Joaquín Wells Womens Sober Living Homes: [facility] x [phone], [place] [facility] Sober Living Homes: [facility] Counseling--Outpatient [facility] [address], [place] [address] (Specializes in in-depth psychotherapy for emotional distress: anxiety, depression, interpersonal conflicts, life transitions, childhood abuse) [facility] [address] [place] [address] (Assist with solving problem marital difficulties, separation & divorce, aging parents, & grief, chronic & terminal illness) [facility] [address] [place] [address] (Deal with loss & grief, anxiety, marital difficulties) Homebound/Mental Health Services [address] [facility] [address] [place], [place] [address] (Provide in-home mental services to people who are incapable of leaving their homes) Organization for Needs of the Elderly Senior Service/Resource Center [address] [place] [address] [facility] [address] [place] [address] PSYCHIATRIC OUTPATIENT SERVICES [facility] Partial Hospitalization and Intensive Outpatient Program (Managed Care and [place] Only)[address] [facility] [phone] [facility] Partial Hospitalization and Outpatient Femhdqs59421 [facility] [address] [place], [place] [phone] [facility] Partial Hospitalization and Outpatient Armstqs2201 [place], [place] [phone] [facility] Center Czn[address] [facility] [address] [place], [place] [phone] [facility] Partial Hospitalization and Outpatient Afjepuj61790 [place], [phone] Crisis and Hotline Telephone Numbers 24-Hour service unless stated [place] Crisis Hotlines: [employer] Mental Health/Crisis Line........939.337.6102 Suicide Prevention Center (24 Hours).......547.755.3939 Suicide Prevention Crisis Center.......011-357-1325 (24 Hours) Assaults Against Women Hotline.........614.374.7398 (24 Hours -- [facility]) Women and Children Crisis Custodial...........[phone] (24 Hours) Child Abuse Hotline............833.547.8052 [facility] Children[facility] Services [facility] Treatment Center (24 Hours)..........[phone] Alcoholics Anonymous (24 Hours)..........871.816.5718 Cocaine Anonymous (24 Hours)............385.724.1167 Narcotics Anonymous (24 Hours)..........444.997.7408 [facility] [address] [place] [address] Mental Health Services [facility] [address] [place] [address] Services: Outpatient therapy for children, teens, young adults, adults, older adults, and families; Psychiatric services, medication support Crisis and Hotline Telephone Numbers 24-Hour service unless stated [place] Crisis Hotlines: [facility] Mental Health/Crisis Line........765.539.8004 Suicide Prevention Center (24 Hours).......[phone] Suicide Prevention Crisis Center.......800.726.9414 (24 Hours) Alcoholics Anonymous (24 Hours)..........765.481.6135 National Crisis Hotlines: Alcohol and Drug Helpline - Provides referrals to local facilities where adolescents and adults can seek help. Brief intervention. CATRACHO Helpline National [place] for the Mentally Ill 0-936-641-CATRACHO National Youth Crisis Hotline [place] [facility]. Provides free information on specific disorders, referral directory to mental health providers, national directory of local mental health associations (M-F, 9-5 EST) National Custar of Mental Health Information Line: Provide sinformation and literature on mental illness by disorder-for professionals and general public.
[2020-12-28 15:21] LABS: LYMPHOCYTES % (MANUAL) 28 % (16-48); MONOCYTES % (MANUAL) 5 % (0-11.0); NEUTROPHILS % (MANUAL) 67 (42-76)
--- NOTE | 2020-12-28 15:46 | NUR ---
Patient discharged to home in stable condition. Written and verbal after care instructions given. Patient verbalizes understanding of instruction.IV removed. Catheter intact and site benign. Pressure and 4x4 applied to site. No bleeding noted. Pt ambulatory with a steady gait
[2020-12-28 15:47] VITALS: BP 124/75
== END 2020-12-28 15:28 | disposition home or self-care (01) ==
LOC: ER 13:27
DX: F10.129 Alcohol abuse with intoxication, unspecified (principal); E86.0 Dehydration; I10 Essential (primary) hypertension; E78.00 Pure hypercholesterolemia, unspecified; Z79.899 Other long term (current) drug therapy; Y90.8 Blood alcohol level of 240 mg/100 ml or more
CPT/HCPCS: 36415; 71045; 80048; 80076; 80320; 82962; 85007; 85025; 93005; 96360; 96361; 99285; J7030 ×2; G0480

== ENCOUNTER 2021-01-07 11:51 | Emergency (ER) | payer BC, OTHER ==
[~2021-01-07] VITALS: Ht 182.9 cm; Wt 77.6 kg
--- NOTE | 2021-01-07 12:06 | NUR ---
The patient bibwife, alcohol withdrawal, last drink of vodka this morning. C/O headache 07/16. The patient is calm. No shaking in the extremities. Will continue to monitor.
[2021-01-07] MEDS ORDERED: FOLIC ACID 1 MG TABLET ONE (12:27)
[2021-01-07 12:30] LABS: BASOPHILS # (AUTO) 0.1 K/uL (0.0-0.2); BASOPHILS % (AUTO) 1.4 % (0.0-2.0); EOSINOPHILS % (AUTO) 1.1 % (0.0-6.0); HEMATOCRIT 33 % (39-51); HEMOGLOBIN 11.4 g/dL (13.5-17.5); LYMPHOCYTES # (AUTO) 1.1 K/uL (0.8-4.8); LYMPHOCYTES % (AUTO) 19.2 % (20.0-44.0); MEAN CORPUSCULAR HGB CONC 35 g/dl (31.0-36.0); MEAN CORPUSCULAR VOLUME 110 fL (80-96); MONOCYTES # (AUTO) 0.6 K/uL (0.1-1.30); MONOCYTES % (AUTO) 11.5 % (2.0-12.0); NEUTROPHILS # (AUTO) 3.7 K/uL (1.8-8.9); NEUTROPHILS % (AUTO) 66.8 % (43.0-81.0); PLATELET COUNT (AUTO) 86 K/uL (150-450); RED BLOOD CELL COUNT(AUTO) 3.01 MIL/uL (4.5-6.0); WHITE BLOOD COUNT (AUTO) 5.6 K/uL (4.3-11.0)
[2021-01-07] MEDS ORDERED: FOLIC ACID 1 MG TABLET PO ONE (12:30)
[2021-01-07] MEDS ORDERED: IV NS 0.9% 1,000 ML BAG IV ONE (12:30)
[2021-01-07 12:41] LABS: CALCIUM, SERUM 8.4 mg/dL (8.5-10.1); CARBON DIOXIDE 25 mmol/L (21-32); CHLORIDE 106 mmol/L (98-107); CREATININE 0.8 mg/dL (0.6-1.3); GLUCOSE 143 mg/dL (74-106); POTASSIUM 3.2 mmol/L (3.5-5.1); SODIUM SERUM 142 mmol/L (136-145); UREA NITROGEN, BLOOD 13 mg/dL (7-18)
[2021-01-07 12:48] LABS: ALANINE AMINOTRANSFERASE 89 U/L (12-78); ALBUMIN 3.5 g/dL (3.4-5.0); ALKALINE PHOSPHATASE 130 U/L (46-116); ASPARTATE AMINOTRANSFERASE 166 U/L (15-37); BILIRUBIN,DIRECT 0.3 mg/dL (0.0-0.2); BILIRUBIN,TOTAL 1.1 mg/dL (0.2-1.0); TOTAL PROTEIN, SERUM 6.7 g/dL (6.4-8.2)
[2021-01-07] MEDS ORDERED: POTASSIUM CHLORIDE 20 MEQ TAB.PRT.SR PO ONE ×2 (13:00→13:11)
[2021-01-07 13:01] LABS: ALCOHOL, BLOOD 406 mg/dL (0-0)
[2021-01-07 13:14] LABS: LYMPHOCYTES % (MANUAL) 16 % (16-48); MONOCYTES % (MANUAL) 5 % (0-11.0); NEUTROPHILS % (MANUAL) 79 (42-76)
[2021-01-07 13:39] VITALS: BP 133/84
--- NOTE | 2021-01-07 13:39 | NUR ---
Patient discharged to home in stable condition. Written and verbal after care instructions given. Patient verbalizes understanding of instruction.
== END 2021-01-07 13:40 | disposition home or self-care (01) ==
LOC: ER 11:58
DX: F10.229 Alcohol dependence with intoxication, unspecified (principal); I10 Essential (primary) hypertension; E78.00 Pure hypercholesterolemia, unspecified; Z79.899 Other long term (current) drug therapy; Y90.8 Blood alcohol level of 240 mg/100 ml or more
CPT/HCPCS: 36415; 80048; 80076; 80143; 80320; 83690; 84484; 85007; 85025; 96360; 99283; J7030; G0480

== ENCOUNTER 2021-01-22 12:10 | Emergency (ER) | payer BC, OTHER ==
[~2021-01-22] VITALS: Ht 182.9 cm; Wt 74.8 kg
[2021-01-22 12:27] VITALS: BP 124/86
--- NOTE | 2021-01-22 12:39 | NUR ---
[facility] [phone] X [phone] TO GET LABS SENT TO US.
--- NOTE | 2021-01-22 12:58 | NUR ---
Patient discharged to home in stable condition. Written and verbal after care instructions given. Patient verbalizes understanding of instruction.
== END 2021-01-22 12:58 | disposition home or self-care (01) ==
LOC: ER 12:12
DX: F10.129 Alcohol abuse with intoxication, unspecified (principal); I10 Essential (primary) hypertension; E78.5 Hyperlipidemia, unspecified; E78.00 Pure hypercholesterolemia, unspecified; Y90.9 Presence of alcohol in blood, level not specified; Z79.899 Other long term (current) drug therapy

== ENCOUNTER 2021-02-03 16:39 | Emergency (ER) | payer BC, OTHER ==
[~2021-02-03] VITALS: Ht 182.9 cm; Wt 70.3 kg
--- NOTE | 2021-02-03 16:39 | NUR ---
PT BIBRA 878 FROM HOME C/O L RING FINGER INJURY S/P FALL. +ETOH. PT IS AAOX3, NOT IN RESPIRATORY DISTRESS, V/S STABLE, KEPT RESTED AND COMFORTABLE. WILL CONTINUE TO MONITOR.
--- NOTE | 2021-02-03 16:40 | NUR ---
YEISON ALCANTARA AT BEDSIDE FOR WOUND CLEANING.
[2021-02-03] MEDS ORDERED: LIDOCAINE 2% 20 ML MDV TP ONE (17:30)
[2021-02-03] MEDS ORDERED: TDAP [DIPH/PERTUSSIS/TET] 0.5 ML VIAL IM ONE ×2 (17:30→17:34)
[2021-02-03] MEDS ORDERED: BUPIVACAINE 0.5 % PF 150 MG/30 ML VIAL IJ ONE (17:30)
[2021-02-03] MEDS ORDERED: LIDOCAINE 2% 20 ML MDV ONE (17:33)
[2021-02-03] MEDS ORDERED: BUPIVACAINE 0.5 % PF 150 MG/30 ML VIAL ONE (17:34)
--- NOTE | 2021-02-03 17:37 | NUR ---
RESTAURANT SHIFT LEADER AT BEDSIDE FOR XRAY.
--- NOTE | 2021-02-03 19:30 | NUR ---
Emt at bedside for wound care
[2021-02-03] MEDS ORDERED: AMOX-430 PO (19:37)
[2021-02-03] MEDS ORDERED: OXYC-128 PO (19:37)
[2021-02-03] MEDS ORDERED: CLIN300C12 PO (19:37)
--- NOTE | 2021-02-03 19:52 | NUR ---
Patient discharged to home in stable condition. Written and verbal after care instructions given. Patient verbalizes understanding of instruction. Pt ambulatory with a steady gait. Pt teaching reinforced multiple times about seeing hand specialist.
[2021-02-03] MEDS ORDERED: CLINDAMYCIN HCL 150 MG CAPSULE PO ONE ×2 (19:58→20:00)
[2021-02-03] MEDS ORDERED: AMOX/CLAVULANATE 875 MG TABLET ONE (19:58)
[2021-02-03] MEDS ORDERED: AMOX/CLAVULANATE 875 MG TABLET PO ONE (20:00)
[2021-02-03 20:03] VITALS: BP 103/68
== END 2021-02-03 19:52 | disposition home or self-care (01) ==
LOC: ER 16:44
DX: S62.635A Displaced fracture of distal phalanx of left ring finger, initial encounter for closed fracture (principal); S61.211A Laceration without foreign body of left index finger without damage to nail, initial encounter; S60.042A Contusion of left ring finger without damage to nail, initial encounter; F10.129 Alcohol abuse with intoxication, unspecified; I10 Essential (primary) hypertension; E78.5 Hyperlipidemia, unspecified; E78.00 Pure hypercholesterolemia, unspecified; Z79.899 Other long term (current) drug therapy; W18.39XA Other fall on same level, initial encounter; Y93.89 Activity, other specified; Y92.89 Other specified places as the place of occurrence of the external cause; Y99.8 Other external cause status; Y90.9 Presence of alcohol in blood, level not specified
CPT/HCPCS: 12001; 73130; 90471; 90715; 99291; A6403; J3490 ×2

== ENCOUNTER 2021-02-11 09:27 | Emergency (ER) | payer BC, OTHER ==
[~2021-02-11] VITALS: Ht 182.9 cm; Wt 74.8 kg
[~2021-02-11 09:27] MED LIST changes: +AMOX-430 PO; +CLIN300C12 PO; +OXYC-128 PO
--- NOTE | 2021-02-11 09:27 | NUR ---
PT BIB [facility] FROM HOME, SHAKING/TREMORS,KNOWN ALCOHOLIC,LAST ALCOHOL INTAKE LAST NIGHT. PT IS AAOX4, NOT IN RESPIRATORY DISTRESS, HOOKED TO FIELD RESEARCH ASSOCIATE, KEPT RESTED AND COMFORTABLE. WILL CONTINUE TO MONITOR.
--- NOTE | 2021-02-11 09:40 | NUR ---
TO ER BED 11 AWAITING MD CULLEN,MONITOED,C/O SHAKING/TREMORS, LAST ALCOHOL INTAKE WAS LAST NIGHT.
--- NOTE | 2021-02-11 09:41 | NUR ---
AT BEDSIDE FOR EVAL.
[2021-02-11] MEDS ORDERED: LORAZEPAM INJ 2 MG/ML VIAL ONE (09:57)
[2021-02-11] MEDS ORDERED: LORAZEPAM INJ 2 MG/ML VIAL IM ONE (10:00)
[2021-02-11] MEDS ORDERED: CHLO25CA22 PO (10:24)
[2021-02-11 11:12] VITALS: BP 135/75
--- NOTE | 2021-02-11 11:12 | NUR ---
Patient discharged to home in stable condition. Written and verbal after care instructions given. Patient verbalizes understanding of instruction.
== END 2021-02-11 11:13 | disposition home or self-care (01) ==
LOC: ER 09:37
DX: S62.635D Displaced fracture of distal phalanx of left ring finger, subsequent encounter for fracture with routine healing (principal); F10.239 Alcohol dependence with withdrawal, unspecified; I10 Essential (primary) hypertension; E78.5 Hyperlipidemia, unspecified; Z79.899 Other long term (current) drug therapy; X58.XXXD Exposure to other specified factors, subsequent encounter; Y90.9 Presence of alcohol in blood, level not specified
CPT/HCPCS: 29130; 96372; 99283; A6403; J2060

== ENCOUNTER 2021-02-22 18:32 | Emergency (ER) | payer BC, MEDICAID ==
[~2021-02-22] VITALS: Ht 182.9 cm; Wt 73.5 kg
[~2021-02-22 18:32] MED LIST changes: +CHLO25CA22 PO
--- NOTE | 2021-02-22 19:25 | NUR ---
C-COLLAR APPLIED TO PATIENT. PATIENT IN NO ACUTE DISTRESS AT THIS TIME.
[2021-02-22 19:54] LABS: BASOPHILS % (AUTO) 0.3 % (0.0-2.0); EOSINOPHILS % (AUTO) 0.2 % (0.0-6.0); HEMATOCRIT 33 % (39-51); HEMOGLOBIN 11.5 g/dL (13.5-17.5); LYMPHOCYTES # (AUTO) 0.9 K/uL (0.8-4.8); LYMPHOCYTES % (AUTO) 9.6 % (20.0-44.0); MEAN CORPUSCULAR HGB CONC 34 g/dl (31.0-36.0); MEAN CORPUSCULAR VOLUME 112 fL (80-96); MONOCYTES # (AUTO) 0.7 K/uL (0.1-1.30); MONOCYTES % (AUTO) 7.4 % (2.0-12.0); NEUTROPHILS # (AUTO) 7.9 K/uL (1.8-8.9); NEUTROPHILS % (AUTO) 82.5 % (43.0-81.0); PLATELET COUNT (AUTO) 126 K/uL (150-450); RED BLOOD CELL COUNT(AUTO) 2.97 MIL/uL (4.5-6.0); WHITE BLOOD COUNT (AUTO) 9.6 K/uL (4.3-11.0)
[2021-02-22 20:03] LABS: CALCIUM, SERUM 7.9 mg/dL (8.5-10.1); CARBON DIOXIDE 22 mmol/L (21-32); CHLORIDE 103 mmol/L (98-107); GLUCOSE 138 mg/dL (74-106); POTASSIUM 3.6 mmol/L (3.5-5.1); SODIUM SERUM 138 mmol/L (136-145); UREA NITROGEN, BLOOD 14 mg/dL (7-18)
[2021-02-22 20:10] LABS: ALANINE AMINOTRANSFERASE 134 U/L (12-78); ALBUMIN 3.5 g/dL (3.4-5.0); ALCOHOL, BLOOD 400 mg/dL (0-0); ALKALINE PHOSPHATASE 110 U/L (46-116); ASPARTATE AMINOTRANSFERASE 146 U/L (15-37); BILIRUBIN,DIRECT 0.2 mg/dL (0.0-0.2); BILIRUBIN,TOTAL 0.3 mg/dL (0.2-1.0); TOTAL PROTEIN, SERUM 7.1 g/dL (6.4-8.2)
[2021-02-22 20:12] LABS: ACETAMINOPHEN < 2 ug/ml (10-30)
[2021-02-22 21:01] LABS: EOSINOPHILS % (MANUAL) 1 % (0-4); LYMPHOCYTES % (MANUAL) 11 % (16-48); MONOCYTES % (MANUAL) 10 % (0-11.0); NEUTROPHILS % (MANUAL) 78 (42-76)
--- NOTE | 2021-02-22 21:30 | NUR ---
Patient discharged to home in stable condition. Written and verbal after care instructions given. Patient verbalizes understanding of instruction.
[2021-02-22 21:57] VITALS: BP 154/88
== END 2021-02-22 21:30 | disposition home or self-care (01) ==
LOC: ER 18:37
DX: S01.21XA Laceration without foreign body of nose, initial encounter (principal); F10.129 Alcohol abuse with intoxication, unspecified; R94.5 Abnormal results of liver function studies; R51.9 Headache, unspecified; I10 Essential (primary) hypertension; E78.5 Hyperlipidemia, unspecified; E78.00 Pure hypercholesterolemia, unspecified; Y90.8 Blood alcohol level of 240 mg/100 ml or more; Z60.2 Problems related to living alone; Z79.899 Other long term (current) drug therapy; W18.39XA Other fall on same level, initial encounter; Y93.89 Activity, other specified; Y92.89 Other specified places as the place of occurrence of the external cause; Y99.8 Other external cause status
CPT/HCPCS: 36415; 70450; 72125; 80048; 80076; 80143; 80320; 84484; 85007; 85025; 93005; 99285; A6403; G0480

== ENCOUNTER 2021-12-25 15:12 | Emergency (ER) | payer BC, OTHER ==
[~2021-12-25] VITALS: Ht 182.9 cm; Wt 79.4 kg
--- NOTE | 2021-12-25 16:00 | NUR ---
RECEIVED PT 61yrs male came BY shen for ETOH AWAKE FALLOW COMMAND respiration
--- NOTE | 2021-12-25 17:23 | NUR ---
PT CONDITION STABLE
--- NOTE | 2021-12-25 17:25 | NUR ---
DINESES CHEST PAIN
--- NOTE | 2021-12-25 18:41 | NUR ---
SISTER CALLED FROM [place] AND REQUESTS ADMISSION OR TRANSFER TO MEDICAL DETOX UNIT/ FACILITY - CELL # [phone]
--- NOTE | 2021-12-25 19:28 | NUR ---
HAND OFF TO DEBBIE BOWLES
--- NOTE | 2021-12-25 19:35 | NUR ---
GUEST SERVICES ASSISTANT AT BED SIDE
[2021-12-25 19:53] LABS: BASOPHILS % (AUTO) 0.4 % (0.0-2.0); EOSINOPHILS % (AUTO) 0.1 % (0.0-6.0); HEMATOCRIT 32 % (39-51); HEMOGLOBIN 11.1 g/dL (13.5-17.5); LYMPHOCYTES # (AUTO) 0.7 K/uL (0.8-4.8); LYMPHOCYTES % (AUTO) 11.7 % (20.0-44.0); MEAN CORPUSCULAR HGB CONC 35 g/dl (31.0-36.0); MEAN CORPUSCULAR VOLUME 107 fL (80-96); MONOCYTES # (AUTO) 0.6 K/uL (0.1-1.30); MONOCYTES % (AUTO) 9.8 % (2.0-12.0); NEUTROPHILS # (AUTO) 4.9 K/uL (1.8-8.9); PLATELET COUNT (AUTO) 71 K/uL (150-450); RED BLOOD CELL COUNT(AUTO) 2.94 MIL/uL (4.5-6.0); WHITE BLOOD COUNT (AUTO) 6.3 K/uL (4.3-11.0)
[2021-12-25 20:13] LABS: BAND % (MANUAL) 5 % (0.0-5.0); LYMPHOCYTES % (MANUAL) 16 % (16-48); MONOCYTES % (MANUAL) 7 % (0-11.0); NEUTROPHILS % (MANUAL) 72 (42-76)
[2021-12-25 20:42] LABS: ALANINE AMINOTRANSFERASE 78 U/L (12-78); ALBUMIN 3.4 g/dL (3.4-5.0); ALCOHOL, BLOOD 220 mg/dL (0-0); ALKALINE PHOSPHATASE 144 U/L (46-116); ASPARTATE AMINOTRANSFERASE 131 U/L (15-37); BILIRUBIN,DIRECT 0.6 mg/dL (0.0-0.2); BILIRUBIN,TOTAL 2.1 mg/dL (0.2-1.0); CALCIUM, SERUM 8.4 mg/dL (8.5-10.1); CARBON DIOXIDE 25 mmol/L (21-32); CHLORIDE 97 mmol/L (98-107); CREATININE 0.8 mg/dL (0.6-1.3); GLUCOSE 81 mg/dL (74-106); POTASSIUM 3.9 mmol/L (3.5-5.1); SODIUM SERUM 137 mmol/L (136-145); TOTAL PROTEIN, SERUM 6.6 g/dL (6.4-8.2); UREA NITROGEN, BLOOD 18 mg/dL (7-18)
[2021-12-25 20:43] LABS: ACETAMINOPHEN < 0 ug/ml (10-30)
--- NOTE | 2021-12-25 20:45 | NUR ---
PATIENT REFUSED IN AND OUT CATH. FOR URINE SAMPLE
--- NOTE | 2021-12-25 22:03 | NUR ---
PATIENT STILL UNABLE TO PROVIDE URINE HES WORKING ON IT VERBALIZED.
--- NOTE | 2021-12-26 04:26 | NUR ---
Patient is resting comfortably in bed with eyes closed. Easily aroused. VSS
[2021-12-26 05:48] LABS: BILIRUBIN,URINE MODERATE (NEGATIVE); COLOR,URINE AMBER (YELLOW); LEUKOCYTE ESTERASE ,URINE NEGATIVE (NEGATIVE); NITRITE, URINE NEGATIVE (NEGATIVE); PROTEIN,URINE 100 mg/dl (NEGATIVE); UGLUCOSE NEGATIVE (NEGATIVE)
--- NOTE | 2021-12-26 07:54 | NUR ---
AWAKE AND VERBALLY RESPONSIVE, NOT IN ACUTE DISTRESS.
[2021-12-26 08:20] LABS: BACTERIA,URINE None seen /HPF (None Seen); MUCUS,URINE Few /LPF (None Seen); RBC,URINE NONE SEEN /HPF (0-2); SQUAMOUS EPITHELIAL CELL,UR None Seen /HPF (None Seen); WBC,URINE NONE SEEN /HPF (0-3)
--- NOTE | 2021-12-26 08:32 | NUR ---
BREAKFAST PROVIDED, ARLEEN. WELL
--- NOTE | 2021-12-26 10:32 | NUR ---
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
--- NOTE | 2021-12-26 12:37 | NUR ---
Patient discharged to detox facility in [place], [place] as set-up by secondary social studies teacher, in stable condition. Written and verbal after care instructions given. Report provided as applicable. Patient verbalizes understanding of instruction.
[2021-12-26 12:39] VITALS: BP 140/82
--- NOTE | 2021-12-26 14:45 | NUR ---
SS Note: Pt. Is a 61-year-old male who demonstrates adequate insight to the reason for hospitalization. Per EMR, pt. presents to the ER for ETOH. Pt. was oriented x3, alert, and cooperative. During interview, pt. was capable of following directions and appeared unkempt. Pt.s speech was at a normal rate and pt.s mood was elevated. Pt. reported no hx of mental health, denies suicidal ideation and homicidal ideation. Pt. denies auditory hallucinations, visual hallucinations, paranoia, or delusions. Pt. has been drinking alcohol for years and it has affected his daily life. LC explored pt.s living situation. Per pt., he lives alone [[address] [place] [place] [address]]. Pt. stated that he wants to go to a detox facility. LC spoke with his sister Jackie [[phone]] and she stated that she wants pt. to go to a detox facility. LC spoke with Substance coordinator Cathy and she was able to find pt. a bed at [facility] [[address] [place] [place] [address]]. Pt. agrees to go. Pt. did an intake over the phone with Stevie from [facility] [[phone]] and explained the procedure to pt. Pt. called an Uber to [facility]. LC and nurse Frida got pt. into the Uber safely. LC notified Stevie from facility and pt.s sister Jackie. LC received a call from Stevie hours later stating that pt. got to the facility safely. However, pt. is appeared unkempt and unable to walk, so therefore they are not able to take pt. During the intake, Stevie did not do a full assessment on pt. [asking if pt. is ambulatory or able to care for self-]. The facility is trying to find a near by hospital to refer pt. Resources Provided: Substance Abuse resources provided included: [facility] Substance Abuse Self-Hel[facility] ([facility]) ; [facility] [address] [place]. [place] [id number] ; [facility] [id number] [place] [id number] ; [facility] [address] [place] [address] ; [facility] [address] [facility] [id number] ; [facility] [address] [facility] [address] ; [facility] [address] [facility] [id number] ; [facility] Substance Abuse Helpline([facility] ; [facility] ; [facility] [place]; [facility] [place]; [facility] [place]; [facility] [address]; [facility] [place]; [facility] [place]; [facility] [place]; [facility] [place]; Alcoholics Anonymous -[facility]; [facility]Ajhphkt ; Marijuana Anonymous -[facility]; Narcotics Anonymous www.na.org;
== END 2021-12-26 12:39 ==
LOC: ER 15:15
DX: S20.212A Contusion of left front wall of thorax, initial encounter (principal); F10.129 Alcohol abuse with intoxication, unspecified; I10 Essential (primary) hypertension; E78.5 Hyperlipidemia, unspecified; E78.00 Pure hypercholesterolemia, unspecified; Z60.2 Problems related to living alone; Z79.899 Other long term (current) drug therapy; Y90.7 Blood alcohol level of 200-239 mg/100 ml; X58.XXXA Exposure to other specified factors, initial encounter; Y93.89 Activity, other specified; Y92.89 Other specified places as the place of occurrence of the external cause; Y99.8 Other external cause status
CPT/HCPCS: 36415; 71100-TC; 80048-TC; 80076-TC; 81001; 85025-TC; G0480